=== PATIENT | female | born 1980 | race Caucasian/White ===

== ENCOUNTER 2017-01-04 10:23 | Emergency (ER) | payer MEDICAID ==
[2017-01-04] MEDS ORDERED: NACL 0.9% 1000 ML 1,000 ML IV ONE (10:50)
--- NOTE | 2017-01-04 10:54 | Emergency Department Report ---
HPI - General Chief Complaint: Abdominal Pain Time Seen by Provider: 01/04/17 10:37 - HPI HPI: Room 7 The patient is a 36-year-old female presenting with a chief complaint of abdominal pain. Patient states she had a lapse, cholecystectomy informed that when at [facility] 12/27/[address] Waller. The patient states she was given a prescription for [place] but lost the prescription. The patient states she's been taking ibuprofen but it is not helping her pain. Patient states she' s had a decreased appetite and nausea without vomiting. Patient is uncertain she's had a fever but admits to reflux. The patient states she did call her surgeon's office and they told her to return to the hospital or go to the nearest ED. The patient gives her pain a score of 9/10 Location: Lower abdomen Duration: Constant since 12/27/2016 Quality: Pain Severity:9/10 Modifying factors: [see above] Context: [see above] Mode of transportation: The patient drove herself to the emergency department and her only accompanying visitor is a small child ED Past Medical Hx - Past Medical History Previous Medical History?: Yes - Surgical History Past Surgical History?: Yes Hx Cholecystectomy: Yes (12/27/2016) - Family History Family history: no significant - Social History Smoking Status: Former Smoker (none 1 month) Substance Use Type: None (denies illicit drug use), Prescribed - Medications Home Medications: Home Medications Medication Instructions Recorded Confirmed Last Taken Type HYDROcodone/APAP 5-325 [F[place] 1 - 2 each PO Q6HR PRN #20 tablet 01/04/17 Unknown Rx 5/325] Promethazine [Phenergan TAB] 25 mg PO Q6HR PRN #20 tab 01/04/17 Unknown Rx Promethazine [Phenergan] 25 mg UT Q6HR PRN #5 supp.rect 01/04/17 Unknown Rx metroNIDAZOLE [Flagyl] 500 mg PO Q8HR #42 tablet 01/04/17 Unknown Rx ED Review of Systems ROS: Stated complaint: STOMACH PAIN Other details as noted in HPI Comment: All other systems reviewed and negative Constitutional: denies: chills Eyes: denies: eye pain, eye discharge, vision change ENT: denies: ear pain, throat pain Respiratory: denies: cough, shortness of breath, wheezing Cardiovascular: denies: chest pain, palpitations Endocrine: no symptoms reported Gastrointestinal: abdominal pain, nausea. denies: vomiting Genitourinary: denies: urgency, dysuria, discharge Musculoskeletal: denies: back pain, joint swelling, arthralgia Skin: denies: rash, lesions Neurological: denies: headache, weakness, paresthesias Psychiatric: denies: anxiety, depression Hematological/Lymphatic: denies: easy bleeding, easy bruising Physical Exam - Physical Exam Vital Signs: Vital Signs 01/04/17 10:24 Temperature 98.5 F Pulse Rate 128 H Respiratory 18 Rate Blood Pressure 129/91 O2 Sat by Pulse 99 Oximetry Physical Exam: GENERAL: The patient is well-developed well-nourished female lying on stretcher not appearing to be in acute distress. [] HEENT: Normocephalic. Atraumatic. Extraocular motions are intact. Patient has moist mucous membranes. NECK: Supple. Trachea midline CHEST/LUNGS: Clear to auscultation. There is no respiratory distress noted. HEART/CARDIOVASCULAR: Regular. There is no tachycardia. There is no gallop rub or murmur. ABDOMEN: Abdomen is soft, with mild discomfort to palpation suprapubically. Surgical sites clean and dry and intact. Patient has normal bowel sounds. There is no abdominal distention. SKIN: There is no rash. There is no edema. There is no diaphoresis. NEURO: The patient is awake, alert, and oriented. The patient is cooperative. The patient has normal speech MUSCULOSKELETAL: There is no evidence of acute injury. ED Course Vital Signs 01/04/17 10:24 Temperature 98.5 F Pulse Rate 128 H Respiratory 18 Rate Blood Pressure 129/91 O2 Sat by Pulse 99 Oximetry - Consultations Consultation #1: 01/04/17 13:37 01/04/17 13:[address] Brizuela (admission discharge rn for patient's surgeon at [facility])-unaware patient received antibiotics. 01/04/17 13:37 Consultation #2: 01/04/17 13:37 GI paged 01/04/17 14:[address] Medina-states patient to be placed on Flagyl 500 mg 3 times a day for 10-14 days and encouraged to return should her symptoms worsen ED Medical Decision Making - Lab Data Result diagrams: 01/04/17 10:37 01/04/17 10:37 Laboratory Tests 0801/04/17 01/04/17 10:36 10:37 10:37 WBC 9.7 RBC 3.73 Hgb 11.1 Hct 34.1 MCV 91 MCH 30 MCHC 33 RDW 14.9 Plt Count 455 H Lymph % (Auto) 12.4 L [place] % (Auto) 9.6 H Eos % (Auto) 3.3 Baso % (Auto) 0.6 Lymph # 1.2 [place] # 0.9 H Eos # 0.3 Baso # 0.1 Seg Neutrophils % 74.1 H Seg Neutrophils # 7.2 Sodium 137 Potassium 4.1 Chloride 100.8 Carbon Dioxide 24 Anion Gap 16 BUN 10 Creatinine 0.8 Estimated GFR > 60 BUN/Creatinine Ratio 12.50 Glucose 120 H Calcium 9.5 Total Bilirubin 1.00 AST 26 ALT 28 Alkaline Phosphatase 114 Total Protein 7.4 Albumin 4.0 Albumin/Globulin Ratio 1.2 Lipase 20 Urine Color Brandi Urine Turbidity Clear Urine pH 5.0 Ur Specific [place] 1.024 Urine Protein 30 mg/dl Urine Glucose (UA) Neg Urine Ketones Neg Urine Blood Neg Urine Nitrite Neg Urine Bilirubin Neg Urine Urobilinogen 2.0 Ur Leukocyte Esterase Neg Urine WBC (Auto) 1.0 Urine RBC (Auto) 2.0 U Epithel Cells (Auto) 20.0 H Urine Mucus 3+ Urine HCG, Qual 01/04/17 Unknown WBC RBC Hgb Hct MCV MCH MCHC RDW Plt Count Lymph % (Auto) [place] % (Auto) Eos % (Auto) Baso % (Auto) Lymph # [place] # Eos # Baso # Seg Neutrophils % Seg Neutrophils # Sodium Potassium Chloride Carbon Dioxide Anion Gap BUN Creatinine Estimated GFR BUN/Creatinine Ratio Glucose Calcium Total Bilirubin AST ALT Alkaline Phosphatase Total Protein Albumin Albumin/Globulin Ratio Lipase Urine Color Urine Turbidity Urine pH Ur Specific [place] Urine Protein Urine Glucose (UA) Urine Ketones Urine Blood Urine Nitrite Urine Bilirubin Urine Urobilinogen Ur Leukocyte Esterase Urine WBC (Auto) Urine RBC (Auto) U Epithel Cells (Auto) Urine Mucus Urine HCG, Qual Negative - Radiology Data Radiology results: report reviewed (CT abdomen and pelvis), image reviewed (CT abdomen and pelvis) CT abdomen and pelvis (read by radiologist)-wall thickening and wall edema involving the hepatic flexure of the colon, proximal transverse colon, portions of the splenic flexure and descending colon which are consistent with colitis. Serum membranous colitis related to antibiotic therapy is a strong possibility. Status post cholecystectomy with no evidence of bile leak or abscess. - Differential Diagnosis postop pain, postop infection, malingering Critical care attestation.: If time is entered above; I have spent that time in minutes in the direct care of this critically ill patient, excluding procedure time. ED Disposition Clinical Impression: Postoperative abdominal pain, Acute colitis, Nausea vomiting and diarrhea Disposition: TO HOME OR SELFCARE Is pt being admited?: No Does the pt Need Aspirin: No Condition: Stable Instructions: Abdominal Pain (ED) Additional Instructions: Return to the emergency department immediately should you develop worsening symptoms, fever, inability to tolerate food or liquid or any other concerns. Prescriptions: HYDROcodone/APAP 5-325 [[place] 5/325] 1 - 2 each PO Q6HR PRN #20 tablet PRN Reason: Pain metroNIDAZOLE [Flagyl] 500 mg PO Q8HR #42 tablet Promethazine [Phenergan TAB] 25 mg PO Q6HR PRN #20 tab PRN Reason: Nausea Promethazine [Phenergan] 25 mg UT Q6HR PRN #5 supp.rect PRN Reason: Vomiting Referrals: KAZ HARTLEY MD [Primary Care Provider] - 3-5 Days MALLORY MEDINA MD [Staff Physician] - 3-5 Days (Dr. Medina is a gas brazer. Please follow with him for further evaluation) Time of Disposition: 14:07
[2017-01-04 10:55] LABS: Bilirubin,Urine NEG (Negative); Blood,Urine NEG (Negative); Ketones,Urine NEG (Negative); Leukocyte Esterase,Urine NEG (Negative); Mucus,Urine 3+ /HPF; Nitrite,Urine NEG (Negative)
[2017-01-04 10:57] LABS: Basophils % (Auto) 0.6 % (0.0-1.8); Eosinophils % (Auto) 3.3 % (0.0-4.3); Hematocrit 34.1 % (30.3-42.9); Hemoglobin 11.1 gm/dl (10.1-14.3); Mean Corpuscular HGB Conc 33 % (30-34); Mean Corpuscular Hemoglobin 30 pg (28-32); Mean Corpuscular Volume 91 fl (79-97); Platelet Count 455 K/mm3 (140-440); Red Blood Count 3.73 M/mm3 (3.65-5.03); Red Cell Distribution Width 14.9 % (13.2-15.2); White Blood Count 9.7 K/mm3 (4.5-11.0)
[2017-01-04 11:07] LABS: Alanine Aminotransferase 28 units/L (7-56); Albumin/Globulin Ratio 1.2 %; Alkaline Phosphatase 114 units/L (35-129); Anion Gap 16 mmol/L; Blood Urea Nitrogen 10 mg/dL (7-17); Calcium 9.5 mg/dL (8.4-10.2); Carbon Dioxide 24 mmol/L (22-30); Chloride 100.8 mmol/L (98-107); Glucose 120 mg/dL (65-100); Lipase 20 units/L (13-60); Potassium 4.1 mmol/L (3.6-5.0); Sodium 137 mmol/L (137-145); Total Protein 7.4 g/dL (6.3-8.2)
[2017-01-04] MEDS ORDERED: NACL ONE (11:33)
--- NOTE | 2017-01-04 12:42 | Cat Scan Report ---
CT ABDOMEN AND PELVIS WITH CONTRAST: 01/04/17 10:23:00 CLINICAL: Postop abdominal pain. Status post laparoscopic cholecystectomy 12/27/16 COMPARISON: None. TECHNIQUE: Volumetric acquisition and 1.25 millimeter scan reconstructions after the uneventful intravenous injection of 100 cc Omnipaque 300. Consent was obtained prior to the administration of contrast. Oral contrast was not given. FINDINGS: Abdomen: The lung bases are clear.Normal liver and bile ducts status post cholecystectomy. Normal postsurgical changes in the gallbladder fossa. Mild fluid density and stranding in the gallbladder fossa but no abscess. No ascites. Normal stomach, duodenum, pancreas and spleen. The adrenal glands and kidneys are normal. Normal aorta and inferior vena cava. Moderate fluid throughout the small bowel. Mild proximal small bowel dilatation.Mild wall thickening of the hepatic flexure of the colon in the proximal transverse colon. The proximal ascending colon and cecum are normal. Mild wall thickening in a portion of the splenic flexure of the colon. The descending colon is collapsed with moderate wall edema. No bowel wall limits pneumatosis No pneumoperitoneum. No ascites. Pelvis: Normal urinary bladder.The uterus is mildly enlarged and heterogeneous in density suggestive of leiomyomata. Normal ovaries. Normal rectum and sigmoid colon. Bone windows demonstrate no bone lesion. IMPRESSION:Wall thickening and wall edema involving the hepatic flexure of the colon, proximal transverse colon, portions of the splenic flexure and the descending colon which are consistent with colitis. Pseudomembranous colitis related to antibiotic therapy is a strong possibility. Status post cholecystectomy with no evidence of bile leak or abscess.
[2017-01-04 14:27] VITALS: BP 135/91
== END 2017-01-04 14:27 | disposition home or self-care (01) ==
LOC: ED 10:23
DX: K52.9 Noninfective gastroenteritis and colitis, unspecified (principal); R10.9 Unspecified abdominal pain; G89.18 Other acute postprocedural pain
CPT/HCPCS: 36415; 74177; 80053; 81001; 81025; 83690; 85025; 96360; 99284; J7030; Q9967